=== PATIENT | female | born 1990 | race Caucasian/White ===

== ENCOUNTER 2023-11-14 08:56 | Outpatient (CLI) | payer OTHER, SELFPAY ==
[2023-11-15 04:38] LABS: Progesterone 13.6 ng/mL
== END 2023-11-14 08:57 | disposition home or self-care (01) ==
LOC: ANHLAB 08:58
PROVIDERS: Visit Provider Nurse Practitioner Family
DX: L50.9 Urticaria, unspecified (principal)
CPT/HCPCS: 36415; 84144; 86038; 86039

== ENCOUNTER 2024-04-16 08:03 | Outpatient (CLI) | payer OTHER, SELFPAY ==
--- NOTE | ~2024-04-16 | MM_ITS ---
EXAMINATION: MM screening graciela BI w nghia HISTORY: Screening mammogram, family history of breast cancer in her mother. TECHNIQUE: Craniocaudal and mediolateral oblique 3-D tomosynthesis images were obtained and synthetic 2-D images were generated. CAD analysis was submitted and interpreted. COMPARISON: No prior mammogram is available for comparison at this institution. BREAST PARENCHYMAL COMPOSITION:Dense: The breasts are extremely dense, which lowers the sensitivity o f mammography. FINDINGS: There is asymmetric density at the inner right breast, without clear-cut correlate on MLO v iew. No parenchymal abnormality left breast seen. IMPRESSION: Interval right breast asymmetry. Spot compression and true lateral views, and possibly ultrasound, a re recommended for further evaluation. BI-RADS Category 0: Incomplete: Needs additional imaging evaluation. Reviewed, dictated and finalized at [facility]. S ENGRAVER IMPRESSION: Interval right breast asymmetry. Spot compression and true lateral views, and possibly ultrasound, are recommended for further evaluation. BI-RADS Category 0: Incomplete: Needs additional imaging evaluation.
== END 2024-04-16 08:04 | disposition home or self-care (01) ==
LOC: ANHIMG 08:06
PROVIDERS: Visit Provider Obstetrics & Gynecology
DX: Z12.31 Encounter for screening mammogram for malignant neoplasm of breast (principal); R92.8 Other abnormal and inconclusive findings on diagnostic imaging of breast
CPT/HCPCS: 77063; 77067

== ENCOUNTER 2024-06-04 10:14 | Outpatient (CLI) | payer OTHER, SELFPAY | END 2024-06-04 10:15 | disposition home or self-care (01) | LOC: ANHIMG 10:16 | PROVIDERS: Visit Provider Obstetrics & Gynecology | DX: R92.8 Other abnormal and inconclusive findings on diagnostic imaging of breast (principal) | CPT/HCPCS: 77061; 77065; G0279 ==

== ENCOUNTER 2024-10-17 12:00 | Day surgery (SDC) | payer OTHER, SELFPAY ==
[2024-10-17] VITALS (8 sets, daily range): BP systolic 128–154; BP diastolic 72–95; PULSE 57–122; RESP 12–18; TEMP 36.3–37.4; O2SAT 100
--- NOTE | ~2024-10-17 | CT_ITS ---
CT of the Abdomen and Pelvis: Indication: Right lower quadrant pain Technique: 2.5 mm axial scans were obtained through the abdomen and pelvis following intravenous adm inistration of 100 cc of Omnipaque 350. Dose reduction technique was used on this scan by utilizing a utomated exposure control and iterative reconstruction technique. The dose-length product (DLP) was 4 04.23 mGy-cm. Findings: Scans through the lung bases are unremarkable. The liver, spleen, pancreas, gallbladder, adrenals and left kidney are within normal limits. There is a 5 mm stone in the proximal right ureter with mild right hydronephrosis. Additional 2 mm nonobstruc ting right renal stone present. No evidence of aortic aneurysm. No lymphadenopathy. No bowel obstruction or bowel wall thickening. There is no evidence to suggest acute appendicitis. Images through the pelvis were performed. Urinary bladder unremarkable. No pelvic mass seen. Ascites. Impression: 5 mm proximal right ureteral stone with mild right hydronephrosis. Additional 2 mm nonobstructing renal stone. Reviewed, dictated and finalized at [facility]. Impression: 5 mm proximal right ureteral stone with mild right hydronephrosis. Additional 2 mm nonobstructing renal stone.
--- NOTE | ~2024-10-17 | XR_ITS ---
XR retrograde pyelo w/stent RT Ordering provider: Trevin Torrez MD History: . RT SIDE STENT PLACEMENT . Comparison: None. FINDINGS/impression: Fluoroscopy time is 99.3 seconds. Cumulative dose is 18.71 mGy. Right retrograde pyelography with stent placement. Reviewed, dictated and finalized at location A.
--- OUTSIDE RECORDS SUMMARY | 2024-10-17 12:15 | XMS_ITS | Clinical Summary ---
Author Organization [facility] Address [address] [place] [id number] Care Team Providers Care Blacksmith Assistant Name Role Phone Unavailable Primary Care Provider Unavailabl e Allergies No known active allergies Medications fexofenadine (RENU) 180 MG tablet 1 Active Benzoyl Peroxide 5.2 % FoamIndications :Cystic acne Apply 1 Application topically nightly. 60 g 1 3 Active spironolactone (ALDACTONE) 100 MG tabletIndicatio ns:Cystic acne Take 1 tablet (100 mg total) by mouth daily. 90 tablet 1 3 Active Active Problems Problem Noted Date Diagnosed Date Closed fracture of calcaneus 03/02/2023 Histoplasmosis 03/24/2011 Mitral valve prolapse 04/24/2007 Migraine with aura 04/24/2004 Immunizations Immunization Administration Dates Next Due Flublok (Quadrivalent) 05/16/2019 Family History Medical History Relation Comments Breast Cancer Mother Relation Status Comments Mother Social History Tobacco Use Types Packs/Day Years Used Date Smoking Tobacco: Never Smokeless Tobacco: Never Tobacco Cessation:Counseling Given: Not Answered Alcohol Use Standard Drinks/Week Comments Yes 0 (1 standard drink = 0.6 oz pur e alcohol) very rare PHQ-2 Answer Date Recorded Patient Health Questionnaire-2 Score 0 06/02/2022 Comments Unknown Sex and Gender Information Value Date Recorded Sex Assigned at Not on file Legal Sex Female 11:34 AM CDT Gender Identity Not on file Sexual Orientation Not on file Last Filed Vital Signs Vital Sign Reading Time Taken Comments Blood Pressure 132/77 06/02/2022 2:07 PM CANDLE WICKER Pulse 67 06/02/2022 2:07 PM CANDLE WICKER Temperature 37.2 C (99 F) 06/02/2022 2:07 PM CANDLE WICKER Respiratory Rate 18 06/02/2022 2:07 PM CANDLE WICKER Oxygen Saturation 100% 06/02/2022 2:07 PM CANDLE WICKER Inhaled Oxygen Concentration - - Weight 75.3 kg (166 lb) 06/02/2022 2:07 PM CANDLE WICKER Height 180.3 cm (5' 11) 06/02/2022 2:07 PM CANDLE WICKER Body Mass Index 23.15 06/02/2022 2:07 PM CANDLE WICKER Plan of Treatment Health Maintenance Due Date Last Done Comments Cervical Cancer Screening Pa p Smear (Age 30 to 64) Every 3 Years 1988 Hepatitis C 01/07/2006 Hepatitis B Vaccines (1 of 3 - 19+ 3-dose series) 01/07/2007 Pneumococcal Vaccine: Pediatrics (0 to 5 Years) and At-Risk Patients (6 to 49 Years) (1 of 2 - PCV) 01/07/2007 Annual Physical 06/03/2023 06/02/2022 COVID-19 Vaccine (3 - 2023-2 5 season) 2023 05/23/2020, 04/25/2020 PHQ-2 (Physician [place]) 04/04/2024 Cervical Cancer Screening Pa p with HPV Testing (Age 30 to 64) Every 5 Years 11/28/2025 11/28/2020, 11/28/2020 Cervical Cancer Screening with HPV 11/28/2025 DTaP, Tdap and Td Vaccines ( 1 - Tdap) 04/06/2027 Postponed from 01/07 (Per Provider Recommendation) HPV Vaccines Aged Out No longer eligi ble based on patient's age to complete this topic Meningococcal B Vaccine Aged Out No l onger eligible based on patient's age to complete this topic Meningococcal Vaccine Aged Out No heaven catherine eligible based on patient's age to complete this topic RSV Immunizations Under 20 Months Aged Out No longer eligible b ased on patient's age to complete this topic Procedures Procedure Name Priority Date/Time Associated Diagnosis Comments OUTSIDE CYTOPATH CERV/VAG IN TERPRET (PAP) 11/28/2020 from Last 3 Months or Most Recently Relevant to Health Maintenance Results * PAP SMEAR WITH HPV (11/28/2020) 11/28/2020 [facility] Scanned SCANNING Final Resu lt from Last 3 Months or Most Recently Relevant to Health Maintenance Insurance [employer]MENTS OF GLADYS MICHAEL ORTIZ
--- OUTSIDE RECORDS SUMMARY | 2024-10-17 12:15 | XMS_ITS | Data Portability ---
Author Organization [place] [facility] Address [address] [place] [address] Care Team Providers Care Sourcing Intern Name Role Phone ALYSSA TUBBS Primary Care Provider [phone] BRYCE LOPEZ Rocket Engine Component Mechanic [phone] Assessment No assessment recorded. Plan of Treatment Reminders Order Date Submit Date Provider Last Modified By Organization Details Last Modified Time Details Appointments None recorded. Lab None recorded. Referral physical therapist referral 2022 023 [facility], [address] [place], [address], 10:09:52 Procedures None recorded. Surgeries None recorded. Imaging None recorded. Medication Orders None recorded. Patient TargetsNo targets recorded. Patient Instructions Encounter Date Encounter Id Patient Instructions Last Modified By Organization Details Last Modified Time 12/10/2022 [id number] I discussed with Zunilda that based on the subjective information she told me along with the findings of the physical exam, I believe that she has soft tissue injury to her ankle. Since this is the second time that she has injured this ankle I told her that it may take a while for it to heal. I told her that the treatment course for her is rest, ice, compression, and elevation. She can discontinue the use of the boot and be weightbearing as tolerated. I told her that if she is not getting any better after a couple weeks that I want her to call our office and we will discuss getting some further imaging by way of an MRI. I told her that she can take anti-inflammatory medicine for pain since she does not have any fractures in this ankle. I am going to give her a work note that states that she can use a knee scooter as well as ice and elevate her ankle while she is at work. I am going to follow-up with her on an as-needed basis. She was instructed to contact us with any questions or concerns. She voiced understanding and agreed with this plan of care. Patient was seen by Radha Crenshaw NP, and the diagnoses, problems and treatment plan for the patient has been reviewed and approved by me, Dr. Alexander Parkinson. [email or web address] Not available 12/10/2022 10:45:35 01/21/2023 [id number] I discussed with Zunilda that the x-rays today do not show the stress fracture or any healing signs of it. I would like her to continue wearing the boot for 2 more weeks. I want her to keep working on her range of motion exercises in her ankle. She asked about exercising and I told her I was fine with her doing some weightlifting as long as she had her boot on. I do not want her doing any type of lunges or anything where her ankle is mobile. I told her to hold off on any cardio until I see her back. I do want to follow-up with her in 2 weeks to check on her progress. I told her at that time if she feels like she needs some physical therapy to work on some strengthening exercises in this ankle that we would order it at that time. She was instructed to contact our office with any questions or concerns. She voiced understanding and agreed with this plan of care. Patient was seen by Radha Crenshaw NP, and the diagnoses, problems and treatment plan for the patient has been reviewed and approved by me, Dr. Alexander Parkinson. [email or web address] Not available 01/21/2023 20:53:37 02/04/2023 [id number] I discussed with Mimi that she seems to be doing well today following her ankle fracture. I am going to send her to physical therapy for a one-time visit to get a home exercise plan to work on range of motion and strengthening for her ankle. She can continue to ice, elevate, and take OTC pain medication as needed for any pain and swelling. I am going to follow-up with her on an as-needed basis. She was instructed to contact our office with any questions or concerns. She voiced understanding and agreed with this plan of care. Patient was seen by Radha Crenshaw NP, and the diagnoses, problems and treatment plan for the patient has been reviewed and approved by ut, Dr. Alexander Parkinson. [email or web address] Not available 02/04/2023 10:00:47 Reason for Referral Physical Therapist Referral for Closed fracture of calcaneus Referring Physician: Alexander Parkinson, Orthopedic Surgery, Encounter Date: 02/04/2023 Results Created Date Observation Date Name Description Value Unit Range Abnormal Flag Note LastModifiedBy Organization Detail LastModifiedTime 12/24/1912/10/2022 XR, ankle No observ ation record ed. [address] [address] [place], [address], 12/24/2022 12:37:24 01/08/20 23 01/06/2023 MRI, ankle , w/o contr ast No observ ation record ed. [place] [address] [facility] [address], [place], [address], 01/07/2023 14:13:34 01/22/20 23 01/21/2023 XR, ankle No observ ation record ed. [address] [address] [place], [address], 01/21/2023 10:46:23 Result Notes None recorded. Problems Name Problem SNOMED Code Status Onset Date Resolution Date Notes Provider Name and Address Organization Details Recorded Time Sprain of right ankle 25842657220603 105 Active 2022 RADHA CRENSHAW APRN [address], [place], [address], [place] [facility] 10:41:58 Pain of right ankle joint 77579580321161 106 Active 2022 RADHA CRENSHAW APRN [address], [place], [address], [place] [facility] 3 10:42:07 Closed fracture of calcaneus 56151246 Active 2022 RADHA CRENSHAW [place]N [address] [place], [address], [place] [facility] 3 20:49:09 Problem Notes None recorded. Medical Equipment None Reported. Allergies No known drug allergies Medications Name Sig Start Date Stop Date Status Note LastModified by Organization Details LastModified Time spironolactone 100 mg tablet active Not Available Not Availabl e Not Available fluoxetine 10 mg capsule TAKE ONE CAPSULE BY MOUTH DAILY active Not Available Not Available No t Available Vitals Date Recorded Body height Body mass index (BMI) Body weight Body temperature Heart rate Systolic And Diastolic Provider Name and Address Organization Details Last Updated DateTime 180.34 cm 22.6 kg/m2 11121.9 6 g 97.3 [degF] 90 /min 130/83 mm[Hg] Trista Bajwa [place] [facility] 10:06:56 Date Recorded Body height Body mass index (BMI) Body weight Heart rate Systolic And Diastolic Provider Name and Address Organization Details Last Updated DateTime 01/21/2023 180.34 cm 22.6 kg/m2 14809.96 g 72 /min 134/79 mm[Hg] Aurora Drummond [place] [facility] 01/21/2023 10:13:38 Date Recorded Body height Body mass index (BMI) Body weight Heart rate Systolic And Diastolic Provider Name and Address Organization Details Last Updated DateTime 02/04/2023 180.34 cm 22.6 kg/m2 08213.96 g 70 /min 122/81 mm[Hg] Aurora Drummond [place] [facility] 02/04/2023 09:46:38 Social History Question Answer Notes LastModified by Organizat ion Details LastModified Time Tobacco Smoking Status Never Smoker bernadette trujillo [place] [facility] 12/07/2022 15:23:59 Do You Have An Advance Directive? No [email or web address] Information not available 12/07/2022 Are You Blind Or Do You Have Difficulty Seeing? No [email or web address] Information not available 12/07/2022 Is Blood Transfusion Acceptable In An Emergency? Yes [email or web address] Information not available 12/07/2022 What Is Your Level Of Caffeine Consumption? Occasional [email or web address] Information not available 12/07/2022 In The 14 Days Before Symptom Onset, Have You Had Close Contact With A Laboratory-confir med COVID-19 While That Case Was Ill? No Information not available 12/07/2022 In The 14 Days Before Symptom Onset, Have You Had Close Contact With A Person Who Is Under Investigation For COVID-19 While That Person Was Ill? No [email or web address] Information not available 12/07/2022 Have You Been To An Area Known To Be High Risk For COVID-19? No [email or web address] Information not available 12/07/2022 Are You Deaf Or Do You Have Serious Difficulty Hearing? No [email or web address] Information not available 12/07/2022 What Type Of Diet Are You Following? REGULAR [email or web address] Information not available 12/07/2022 Have You Processed Blood Or Body Fluids From An Ebola Virus Disease Patient Without Appropriate PPE? No [email or web address] Information not available 12/07/2022 Do You Reside In Or Have You Traveled To An Area Where Ebola Virus Transmission Is Active? No [email or web address] Information not available 12/07/2022 What Is The Highest Grade Or Level Of School You Have Completed Or The Highest Degree You Have Received? [id number] [email or web address] Information not available 12/07/2022 Who Is Your Employer? [employer] [email or web address] Information not available 12/07/2022 How Many Days Of Moderate To Strenuous Exercise, Like A Brisk Walk, Did You Do In The Last 7 Days? 5 Information not available 12/07/2022 Are There Any Guns Present In Your Home? No [email or web address] Information not available 12/07/2022 Which Of Your Hands Is Dominant? Right Information not available 12/07/2022 What Is Your Relationship Status? [email or web address] Information not available 12/07/2022 Do You Use Your Seat Belt Or Car Seat Routinely? Yes Information not available 12/07/2022 Are You Sexually Active? No [email or web address] Information not available 12/07/2022 Do You Have Smoke And Carbon Monoxide Detectors In Your Home? Yes Information not available 12/07/2022 What Types Of Sporting Activities Do You Participate In? Weight Lifting Information not available 12/07/2022 Do You Use Sunscreen Routinely? Yes [email or web address] Information not available 12/07/2022 Do You Have Difficulty Walking Or Climbing Stairs? No [email or web address] Information not available 12/07/2022 Sex: Female Functional Status Question Answer Note LastModified by Organizat ion Details LastModified Time Do you use any illicit or recreational drugs? No Information not available 12/07/2022 Do you or have you ever used any other forms of tobacco or nicotine? No Information not available 12/07/2022 What is your level of alcohol consumption? None [email or web address] Information not available 12/07/2022 Are you currently employed? Yes Information not available 12/07/2022 Are you able to walk? YESWOREST [email or web address] Information not available 12/07/2022 Do you have difficulty doing errands alone? No Information not available 12/07/2022 Are you able to care for yourself? 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 No [email or web address] Information not available 12/07/2022 What is your exercise level? Moderate Information not available 12/07/2022 Mental Status Question Answer Note LastModified by Organizat ion Details LastModified Time Do you feel stressed (tense, restless, nervous, or anxious, or unable to sleep at night)? [id number] [email or web address] Information not available 12/07/2022 Do you have difficulty concentrating, remembering or making decisions? No [email or web address] Information no t available 12/07/2022 Family History Relationship Description Onset Age of this Age Resolved Age Notes LastModified by Organization Details LastModified Time Mother Malignant tumor of breast [email or web address] Not available 2022 15:28:47 Father Malignant tumor of testis [email or web address] Not available 2022 15:29:12 Father Disorder of cardiovascul ar system [email or web address] Not available 2022 15:29:59 Medical History Condition Response Heart Problems N Coronary Artery Disease N Gout N Anxiety/Depression N Blood Transfusion N Hernia N Migraines N Thyroid Problems N COPD N Pacemaker N Anemia N Ulcers N Heart Attack (MD) N Diabetes N Bleeding Disorder N Orthotics N Seizures/Epilepsy N Arthritis N Blood Clot N Tuberculosis N AIDS/HIV N Cancer N Stroke N Asthma N Peripheral Vascular Disease N High Cholesterol N Hepatitis N Liver Disease N Rheumatoid Arthritis N Pulmonary Embolism N Hypertension N Osteoporosis N Kidney Disease N Gynecological HistoryNo gynecological history recorded. Obstetrics History GPAL:G 0 P 0 0 0 0 Past Encounters Encounter ID Performer Location Encounter Start Date Encounter Closed Date Diagnosis/Indication Diagnosis SNOMED-CT Code Diagnosis ICD10 Code Diagnosis Note [id number] [address] 12/10/2022 09:48:08 12/10/2022 10:19:57 Sprain of right ankle 1588536615 1222846 S93.401A Pain of ri ght ankle joint 5920159637 8542835 M25.571 [id number] Parkinson [address] [address] 01/21/2023 10:02:02 01/21/2023 10:50:49 Closed fracture of calcaneus 60057453 S92.044A [id number] Parkinson [address] [address] 02/04/2023 09:40:55 02/04/2023 09:52:55 Closed fracture of calcaneus 92140810 S92.044D Health Concerns Section Related Observation LastModified by Organization Detai ls LastModified Time None Recorded Concern Status LastModified by Organization Details LastModified Time None Recorded Advance Directives Directive N: Payers Insurance Date Sequence Insurance Name Policy Number Policy Rosen Covered Member ID Rosen Member ID Guarantor Name 02/01/2023 1 [employer] - [employer]IVE 360 (EPO) Zunilda Ye [id number] Zunilda Ye 01/18/2023 MICHAEL ORTIZ [id number] [facility] Zunilda Ye Notes Date Note Type Note Provider Name and Address Organization Details Recorded Time 12/10/2022 text/html AnkleReported bypatient.Location: right; lateral Quality:aching Severity:moderate Timing:date of onset: (12/07/2022) Aggravating Factors:walking; weightbearing Alleviating Factors:rest; limited weight bearing; crutches Associated Symptoms:no numbness; no tingling;swelling;e cchymosis Prior Imaging:x ray Mimi is seen in clinic today with complaints of right ankle pain following a visit to the [facility] on 12/07/2022 after she rolled her ankle. She presents today in a walking boot and using crutches and states she was told that she could possibly have a fracture but they were not sure. She has not been weightbearing. She said she was doing okay until yesterday when her ankle started hurting and she has been taking Tylenol as needed. She says that she rolled this ankle about 20 years ago and sprained it pretty bad and it was sore for several months. The ROS is reviewed with the patient and a copy is located in the chart. RADHA CRENSHAW APRN [address] [place], [address], [place] [facility] 12/10/2022 10:46:26 01/21/2023 text/html AnkleReported bypatient.Location: right; lateral Severity:no pain Timing:date of onset: (12/07/2022) Aggravating Factors:walking; weightbearing Alleviating Factors:rest; limited weight bearing; orthotics Associated Symptoms:no numbness; no tingling Prior Imaging:x ray; MRI Zunilda is seen in clinic today for follow up of her right ankle injury. She presents wearing her short leg boot that she was told to return to after her MRI did show a small stress fracture that did not show up on her original radiographs. She states her biggest complaint today is a lack of ROM and not pain. She feels like there is a cluster of tissue on the lateral side of the ankle and this seems to bother her more than actual pain. If it does swell she will ice and elevate. RADHA CRENSHAW APRN [address], [place], [address], [place] [facility] 01/21/2023 20:55:27 02/04/2023 text/html AnkleReported bypatient.Location: right; lateral Severity:no pain Timing:date of onset: (12/07/2022) Aggravating Factors:walking; weightbearing Alleviating Factors:rest; limited weight bearing; orthotics Associated Symptoms:no numbness; no tingling Prior Imaging:x ray; MRI Previous PT:none Zunilda is here for follow up for her ankle fracture that was discovered on MRI. She had been wearing her walking boot up until a week ago. She states the ankle was starting to feel stiff so while at home during the week she ambulated without the boot, and that made her ankle feel better. Today she states she is not having pain, just stiffness. She has no other complaints today. RADHA CRENSHAW, PARTS DELIVERY DRIVER [address] [place], [address], [place] [facility] 02/04/2023 10:04:12 OBGyn Episode No OBEpisode recorded.
[2024-10-17 12:21] LABS: BEDSIDEPREGUCG Negative (Negative)
[2024-10-17 12:25] LABS: Hematocrit 40.4 % (37.0-47.0); Hemoglobin 13.4 g/dL (12.0-15.0); Immature Granulocyte Percent A 0.2 % (0-0.5); Lymphocytes Absolute Auto 1.75 K/mm3 (0.9-3.2); Mean Corpuscular HGB Conc 33.2 g/dl (32-36); Mean Corpuscular Hemoglobin 29.8 pg (26-34); Mean Corpuscular Volume 90.0 fl (80-100); Nucleated Red Blood Cells Absolute Auto 0.000 K/mm3 (0.0-0.012); Nucleated Red Blood Cells Perc 0.0 % (0.0-0.2); Platelet Count Result 265 k/mm3 (150-375); Red Blood Count 4.49 M/mm3 (4.2-5.4); White Blood Count 6.5 K/mm3 (4.5-10.0)
[2024-10-17 12:36] LABS: Add Urine Microscopic? YES; Appearance Urine Cloudy (Clear); Glucose Urine UA Negative (Negative); Leukocyte Esterase Ur 1+ LEU/UL (Negative); Nitrate Urine Negative (Negative); Non Pathogenic Casts 0-2; Specific Grav Ur 1.033 (1.001-1.035)
--- OUTSIDE RECORDS SUMMARY | 2024-10-17 12:40 | XMS_ITS | Clinical Summary ---
Author Organization [facility] Address [address] [place] [address] Care Team Providers Care Roller Stitcher Name Role Phone Unavailable Primary Care Provider [...] Comments Blood Pressure 132/77 06/02/2022 2:07 PM DOCUMENTATION SPEC Pulse 67 06/02/2022 2:07 PM DOCUMENTATION SPEC Temperature 37.2 C (99 F) 06/02/2022 2:07 PM DOCUMENTATION SPEC Respiratory Rate 18 06/02/2022 2:07 PM DOCUMENTATION SPEC Oxygen Saturation 100% 06/02/2022 2:07 PM DOCUMENTATION SPEC Inhaled Oxygen Concentration - - Weight 75.3 kg (166 lb) 06/02/2022 2:07 PM DOCUMENTATION SPEC Height 180.3 cm (5' 11) 06/02/2022 2:07 PM DOCUMENTATION SPEC Body Mass Index 23.15 06/02/2022 2:07 PM DOCUMENTATION SPEC Plan of Treatment Health Maintenance Due Date [...] 5 season) 2023 05/23/2020, 04/25/2020 PHQ-2 (Physician [place]) 04/04/2024 Cervical Cancer Screening Pa p with [...] Most Recently Relevant to Health Maintenance Insurance [employer]SEMENTS OF GLADYS MICHAEL ORTIZ
[2024-10-17 12:43] LABS: Alanine Aminotransferase 19 U/L (6-35); Albumin Level 4.5 g/dL (3.5-5.1); Alkaline Phosphatase 57 U/L (38-126); Anion Gap 10 mmol/L (4-12); Aspartate Amino Transferase 29 U/L (14-36); Bilirubin,Total 0.8 mg/dL (0.2-1.3); Blood Urea Nitrogen 19 mg/dL (7-17); Calcium 9.2 mg/dL (8.4-10.2); Carbon Dioxide 21 mmol/L (22-30); Chloride 105 mmol/L (98-107); Estimated CRCL calculation 66 ml/min; Estimated Glomerular Filt Rate 54; Glucose 100 mg/dL (65-110); Lipase 87 U/L (23-300); Potassium 4.1 mmol/L (3.4-5.0); Sodium 136 mmol/L (137-145); Total Protein 7.6 g/dL (6.3-8.2)
--- NOTE | 2024-10-17 12:43 | ED_ITS ---
HPI - Abdominal Pain General Chief Complaint: Abdominal Pain Stated Complaint: ABD PAIN Time Seen by Provider: 10/17/24 12:33 Source: patient Mode of arrival: ambulatory Limitations: no limitations History of Present Illness HPI narrative: 34 years old white female came to the ED with sudden onset of right lower quadrant pain for associated with nausea and frequent vomiting. Sharp, nothing make it better, nothing make it worse. Patient denies fever or chills Related Data Home Medications ?Medication ?Instructions ?Recorded ?Confirmed ?Last Taken ?Type drospirenone (contraceptive) 4 mg 4 mg PO DAILY 10/17/24 10/17/24 10/16/24 History (28) tablet (Slynd) Allergies Allergy/AdvReac Type Severity Reaction Status Date / Time No Known Allergies Allergy Verified 10/17/24 12:10 Review of Systems 2 Review of Systems: All systems reviewed & are unremarkable except as noted in HPI and below PMFSH Family History Family History Mother Family history of malignant neoplasm of breast in first degree relative Father Family history of malignant neoplasm of testis Sibling Family history of malignant neoplasm of testis Social History Social History Smoking status: Never smoker Alcohol intake: never Exam 2 Narrative: General appearance: Well-developed, well-nourished, in pain, restless Skin: Normal color Head: Normocephalic, nontraumatic Eyes: Clear conjunctiva ENT: Oropharynx normal, ears normal, nose normal Neck: Supple, nontender Chest and respiratory: Airway patent, no respiratory distress, no accessory muscle use Heart: Regular rate/rhythm Abdomen: Soft, severe tenderness right lower quadrant, no organomegaly, quiet bowel sounds Vascular: Normal peripheral pulses, normal capillary refill. Musculoskeletal: Normal range of motion, nontender back Neurologic: Alert and oriented ?3, [employer] is normal as tested, no gross motor deficit Course Consultations Consultation #1: Dr. Laguna Admit to hospitalist Date: 10/17/24 Vital Signs Vital signs: Vital Signs Temperature 36.3 C L 10/17/24 12:07 Pulse Rate 74 10/17/24 12:07 Respiratory Rate 18 10/17/24 12:07 Blood Pressure 140/91 H 10/17/24 12:07 Pulse Oximetry 100 10/17/24 12:07 Oxygen Delivery Room Air 10/17/24 12:07 Temperature 36.3 C L 10/17/24 15:32 Pulse Rate 77 10/17/24 16:40 Respiratory Rate 14 10/17/24 16:40 Blood Pressure 128/72 10/17/24 16:40 Pulse Oximetry 100 10/17/24 16:00 Oxygen Delivery Room Air 10/17/24 16:00 Oxygen Flow Rate 10 10/17/24 15:32 MDM - Abdominal Pain MDM Narrative Medical decision making narrative: Sudden onset of right lower quadrant pain associated with nausea and vomiting Vital signs are stable Differential diagnosis include ruptured ovarian cyst, kidney stone, appendicitis, intussusception, colitis, diverticulitis, urinary tract infection Blood workup today includes CBC, CMP, lipase showed creatinine of 1.1 otherwise within normal limit Urinalysis showed 3+ blood, 1+ leukocyte Estrace, 11-[address] abdomen and pelvis with IV contrast showed 5 mm proximal right ureteral stone with mild hydronephrosis Diagnosis kidney stone Rocephin 1 g IV given, Urology consult, admit to hospitalist. Differential Diagnosis Differential diagnosis: Likely other (As above) Medical Records Attestation: I reviewed the patient's medical records. Lab Data Attestation: I reviewed the patient's lab results. 10/17/24 12:12 10/17/24 12:12 Labs: Lab Results 10/17/24 10/17/24 10/17/24 Range/Units 12:12 12:19 12:20 WBC 6.5 (4.5-10.0) K/mm3 RBC 4.49 (4.2-5.4) M/mm3 Hgb 13.4 (12.0-15.0) g/dL Hct 40.4 (37.0-47.0) % MCV 90.0 (80-100) fl MCH 29.8 (26-34) pg MCHC 33.2 (32-36) g/dl RDW 12.5 (11.5-14.5) % Plt Count 265 (150-375) k/mm3 MPV 10.5 H (7.4-10.4) fl Immature Gran % (Auto) 0.2 (0-0.5) % Neut % (Auto) 63.0 (45.5-73.1) % Lymph % (Auto) 26.8 (18.3-44.2) % [place] % (Auto) 7.4 (2.6-8.5) % Eos % (Auto) 1.8 (0-4.4) % Baso % (Auto) 0.8 (0.2-1.2) % Lymph # (Auto) 1.75 (0.9-3.2) K/mm3 [place] # (Auto) 0.5 (0.1-0.6) K/mm3 Eos # (Auto) 0.1 (0-0.3) K/mm3 Baso # (Auto) 0.1 (0.0-0.1) K/mm3 Abs Immat Gran (auto) 0.01 (0.00-0.031) K/mm3 Absolute Neuts (auto) 4.1 (1.3-6.7) K/mm3 Absolute Nucleated RBC 0.000 (0.0-0.012) K/mm3 Nucleated RBC % 0.0 (0.0-0.2) % Sodium 136 L (137-145) mmol/L Potassium 4.1 (3.4-5.0) mmol/L Chloride 105 (98-107) mmol/L Carbon Dioxide 21 L (22-30) mmol/L Anion Gap 10 (4-12) mmol/L BUN 19 H (7-17) mg/dL Creatinine 1.13 H (0.7-1.0) mg/dL Estim Creat Clear Calc 66 ml/min Estimated GFR 54 L (59 - ) Glucose 100 (65-110) mg/dL Calcium 9.2 (8.4-10.2) mg/dL Total Bilirubin 0.8 (0.2-1.3) mg/dL AST 29 (14-36) U/L ALT 19 (6-35) U/L Alkaline Phosphatase 57 (38-126) U/L Total Protein 7.6 (6.3-8.2) g/dL Albumin 4.5 (3.5-5.1) g/dL Lipase 87 (23-300) U/L Urine Color Yellow (Yellow) Urine Appearance Cloudy H (Clear) Urine pH 5.5 (5.0-9.0) Ur Specific [place] 1.033 (1.001-1.035) Urine Protein 1+ H (Negative) mg/dL Urine Glucose (UA) Negative (Negative) mg/dL Urine Ketones 1+ H (Negative) mg/dL Ur Blood (Man) 3+ H (Negative) Urine Nitrate Negative (Negative) Urine Bilirubin Negative (Negative) Urine Urobilinogen 1.0 (<2.0) mg/dL Leukocyte Esterase Rfl 1+ H (Negative) TAYLER/UL Urine RBC 21-50 H (0-2) /hpf Urine WBC 11-20 H (0-3) /hpf Ur Squamous Epith Cells Few (Few) /hpf Urine Bacteria 1+ H /hpf Urine Casts 0-2 POC Urine HCG, Qual Negative (Negative) Imaging Data Radiologist's impression: ITS Impressions Abdomen/Pelvis CT 10/17/24 13:08 Impression: 5 mm proximal right ureteral stone with mild right hydronephrosis. Additional 2 mm nonobstructing renal stone. Critical Care Time Critical Care Time Critical Care Time: No Discharge Plan Discharge Clinical Impression: Renal stone Patient Disposition: Still a Patient Condition: Stable
[2024-10-17] MEDS: ONDANSETRON INJ 4 MG/2 ML VIAL IV PUSH (13:12)
[2024-10-17] MEDS: HYDROmorphone HCL INJ (*CRX) 2 MG/ML VIAL 0.5 MG IV PUSH ×2 (13:13→14:12)
[2024-10-17] MEDS: cefTRIAXone 1 GM in SODIUM CHLORIDE 0.9% IV 50 ML 100 ML IVPB (13:52)
[2024-10-17] MEDS: TAMSULOSIN HCL 0.4 MG CAPSULE PO (13:52)
--- NOTE | 2024-10-17 13:57 | WPDURCON ---
Assessment and Plan Assessment and plan (1) Ureteral calculus: Code(s): N20.1 - Calculus of ureter Status: Acute (2) Renal stone: Code(s): N20.0 - Calculus of kidney Status: Acute (3) Hydronephrosis: Code(s): N13.30 - Unspecified hydronephrosis Status: Acute Plan -CT AP reveals 5 mm proximal right ureteral stone with mild right hydronephrosis. Additional 2 mm nonobstructing renal stone. -wbc wnl -cr 1.13 -ua suspicious for infection. Rocephin given in ER. culture pending. culture driven antibiotic therapy per primary service. -Discussed cystoscopy with right ureteral stent placement including risks and plan for outpatient definitive stone management after resolution of infection. Patient agreeable to urologic surgical intervention today. -Keep NPO -add on for cystoscopy with right ureteral stent placement with Dr. Torrez today. Urology Consult Note HPI Date Seen: 10/17/24 Primary Care Provider: RECONCILIATION COORDINATOR PHYSICIAN Consult Narrative Narrative: Zunilda Ye is a 34 year old female came to the ED with sudden onset of right lower quadrant pain for associated with nausea and frequent vomiting. Sharp, nothing make it better, nothing make it worse. Patient denies fever or chills Review of Systems Review of Systems: All systems reviewed & are unremarkable except as noted in HPI and below PMFSH Family History Family History Mother Family history of malignant neoplasm of breast in first degree relative Father Family history of malignant neoplasm of testis Sibling Family history of malignant neoplasm of testis Social History Social History Smoking status: Never smoker Alcohol intake: never Meds Home Medications and Allergies Home Medications ?Medication ?Instructions ?Recorded ?Confirmed ?Type fluconazole 150 mg tablet 150 mg PO ONCE #2 tabs 09/27/24 Rx Allergies Allergy/AdvReac Type Severity Reaction Status Date / Time No Known Allergies Allergy Verified 10/17/24 12:10 Vital Signs Vital Signs - 24 hr 10/17/24 12:07 Temperature 97.3 F L Pulse Rate 74 Respiratory Rate 18 Blood Pressure 140/91 H Pulse Oximetry 100 Oxygen Delivery Room Air Exam Const: General: uncomfortable Eyes: General: appearance normal, both eyes and all related structures Neck: Neck: supple Resp: Effort & Inspection: normal respiratory effort Skin: General skin exam: normal color Neuro: Speech: normal speech Psych: Speech and movement: Normal speech and movement present Results Labs 10/17/24 12:12 10/17/24 12:12 Labs: Short CBC 10/17/24 Range/Units 12:12 WBC 6.5 (4.5-10.0) K/mm3 Hgb 13.4 (12.0-15.0) g/dL Hct 40.4 (37.0-47.0) % Plt Count 265 (150-375) k/mm3 BMP 10/17/24 12:12 Sodium 136 L Potassium 4.1 Chloride 105 Carbon Dioxide 21 L BUN 19 H Creatinine 1.13 H Glucose 100 Calcium 9.2 Liver Function 10/17/24 Range/Units 12:12 Total Bilirubin 0.8 (0.2-1.3) mg/dL AST 29 (14-36) U/L ALT 19 (6-35) U/L Alkaline Phosphatase 57 (38-126) U/L Albumin 4.5 (3.5-5.1) g/dL Urine 10/17/24 Range/Units 12:20 Urine Color Yellow (Yellow) Urine Appearance Cloudy H (Clear) Urine pH 5.5 (5.0-9.0) Ur Specific [place] 1.033 (1.001-1.035) Urine Protein 1+ H (Negative) mg/dL Urine Glucose (UA) Negative (Negative) mg/dL
[2024-10-17] MEDS: SODIUM CHLORIDE 0.9% IV 1,000 ML 125 ML IV CONT (14:12)
[2024-10-17] MEDS: METOCLOPRAMIDE HCL INJ 10 MG/2 ML VIAL IV PUSH (14:12)
--- NOTE | 2024-10-17 14:27 | WPDHPUPDATE1 ---
History and Physical Update Update Date/Time: 10/17/24 14:27 History and Physical has been reviewed, including an updated exam of the patient. There are NO changes in the patient's condition. Risks, benefits, and alternatives have been discussed and questions answered. Patient agrees to proceed with procedure.
--- NOTE | 2024-10-17 14:48 | WPDANESEPPF ---
Anes - Initial Pre Proc Eval Procedure: Operation Date: 10/17/24 14:30 Proposed Procedures p Cystoscopy, Right Stent Placement - Trevin Torrez MD Date/Time: 10/17/24 14:48 Surgeon: Marshall Ramirez MD Pre Op Diagnosis: right proximal kidney stone Patient Data Age: 34 Gender: F Height: 1.8 m Weight: 68.1 kg Last Vital Signs Temp 98.0 F 10/17/24 14:03 Pulse 57 L 10/17/24 14:03 Resp 18 10/17/24 14:03 BP 135/81 10/17/24 14:03 Pulse Ox 100 10/17/24 14:03 O2 Del Method Room Air 10/17/24 12:07 Allergies Allergy/AdvReac Type Severity Reaction Status Date / Time No Known Allergies Allergy Verified 10/17/24 12:10 Home Medications ?Medication ?Instructions ?Recorded ?Confirmed ?Type drospirenone (contraceptive) 4 mg 4 mg PO DAILY 10/17/24 10/17/24 History (28) tablet (Slynd) Laboratory Tests 10/17/24 10/17/24 10/17/24 12:12 12:19 12:20 WBC 6.5 K/mm3 (4.5-10.0) RBC 4.49 M/mm3 (4.2-5.4) Hgb 13.4 g/dL (12.0-15.0) Hct 40.4 % (37.0-47.0) MCV 90.0 fl (80-100) MCH 29.8 pg (26-34) MCHC 33.2 g/dl (32-36) RDW 12.5 % (11.5-14.5) Plt Count 265 k/mm3 (150-375) MPV 10.5 H fl (7.4-10.4) Immature Gran % (Auto) 0.2 % (0-0.5) Neut % (Auto) 63.0 % (45.5-73.1) Lymph % (Auto) 26.8 % (18.3-44.2) [place] % (Auto) 7.4 % (2.6-8.5) Eos % (Auto) 1.8 % (0-4.4) Baso % (Auto) 0.8 % (0.2-1.2) Lymph # (Auto) 1.75 K/mm3 (0.9-3.2) [place] # (Auto) 0.5 K/mm3 (0.1-0.6) Eos # (Auto) 0.1 K/mm3 (0-0.3) Baso # (Auto) 0.1 K/mm3 (0.0-0.1) Abs Immat Gran (auto) 0.01 K/mm3 (0.00-0.031) Absolute Neuts (auto) 4.1 K/mm3 (1.3-6.7) Absolute Nucleated RBC 0.000 K/mm3 (0.0-0.012) Nucleated RBC % 0.0 % (0.0-0.2) Sodium 136 L mmol/L (137-145) Potassium 4.1 mmol/L (3.4-5.0) Chloride 105 mmol/L (98-107) Carbon Dioxide 21 L mmol/L (22-30) Anion Gap 10 mmol/L (4-12) BUN 19 H mg/dL (7-17) Creatinine 1.13 H mg/dL (0.7-1.0) Estim Creat Clear Calc 66 ml/min Estimated GFR 54 L (59 - ) Glucose 100 mg/dL (65-110) Calcium 9.2 mg/dL (8.4-10.2) Total Bilirubin 0.8 mg/dL (0.2-1.3) AST 29 U/L (14-36) ALT 19 U/L (6-35) Alkaline Phosphatase 57 U/L (38-126) Total Protein 7.6 g/dL (6.3-8.2) Albumin 4.5 g/dL (3.5-5.1) Lipase 87 U/L (23-300) Urine Color Yellow (Yellow) Urine Appearance Cloudy H (Clear) Urine pH 5.5 (5.0-9.0) Ur Specific [place] 1.033 (1.001-1.035) Urine Protein 1+ H mg/dL (Negative) Urine Glucose (UA) Negative mg/dL (Negative) Urine Ketones 1+ H mg/dL (Negative) Ur Blood (Man) 3+ H (Negative) Urine Nitrate Negative (Negative) Urine Bilirubin Negative (Negative) Urine Urobilinogen 1.0 mg/dL (<2.0) Leukocyte Esterase Rfl 1+ H TAYLER/UL (Negative) Urine RBC 21-50 H /hpf (0-2) Urine WBC 11-20 H /hpf (0-3) Ur Squamous Epith Cells Few /hpf (Few) Urine Bacteria 1+ H /hpf Urine Casts 0-2 POC Urine HCG, Qual Negative (Negative) Patient hx anesthesia problems: none Family hx anesthesia problems: none Results Review: All pre-operative results and documents have been reviewed as part of the pre-operative evaluation. [facility] Family History Family History Mother Family history of malignant neoplasm of breast in first degree relative Father Family history of malignant neoplasm of testis Sibling Family history of malignant neoplasm of testis Social History Social History Smoking status: Never smoker Alcohol intake: never Anes - Eval Final PreProcedure Day of Procedure 10/17/24 14:48 Patient weight: normal and thin Lungs: normal air movement Airway: Mallampati scale class II Neurological: alert and oriented Last oral intake: 6 hours (Pt had a doughnut at 8am. ) ASA classification: I Emergent: yes Anesthetic plan: proceed Anesthesia type and monitoring: general ETT and standard monitoring Results Review: All pre-operative results and documents have been reviewed as part of the pre-operative evaluation. Overall good health, now for emergent cysto/stent due to hydronephrosis. Informed Consent: The patient's anesthetic plan and its attendant risks and benefits were discussed with the patient/family/POA. Questions were solicited and answers provided to the satisfaction of the patient/family/POA.
[2024-10-17] MEDS: LIDOCAINE 2% GEL UROJET 10 ML PKG MUCOUS MEM (15:06)
--- NOTE | 2024-10-17 15:18 | P.HP_ITS ---
H&P: HPI History of Present Illness Date/Time: 10/17/24 15:18 Chief Complaint: Acute right lower quadrant pain Narrative: 34-year-old female presents the hospital with acute right lower quadrant pain nausea vomiting. Patient was at work when she experienced excruciating pain so she went to the emergency room to be evaluated. In the ED her lab work shows sodium of 136, carbon dioxide 21, BUN of 19, creatinine of 1.13, estimated GFR of 54, UA is cloudy with 1+ leukocyte esterase 1+ bacteria, 11-20 rbc's and few squamous. Him CT of abdomen pelvis show 5 mm proximal right ureteral stone with mild right hydronephrosis and 2 mm nonobstructing renal stone. Patient will be admitted for pain management and to see Urology for possible stent placement. Review of Systems Review of Systems: 12 systems were reviewed and are negativ e except for as per HPI. [facility], [facility] Family History Family History Mother Family history of malignant neoplasm of breast in first degree relative Father Family history of malignant neoplasm of testis Sibling Family history of malignant neoplasm of testis Social History Social History Smoking status: Never smoker Alcohol intake: never Meds Home Medications and Allergies Home Medications ?Medication ?Instructions ?Recorded ?Confirmed ?Type drospirenone (contraceptive) 4 mg 4 mg PO DAILY 10/17/24 10/17/24 History (28) tablet (Slynd) Allergies Allergy/AdvReac Type Severity Reaction Status Date / Time No Known Allergies Allergy Verified 10/17/24 12:10 Vital Signs Vital Signs - 24 hr 10/17/24 12:07 10/17/24 14:03 10/17/24 14:35 Temperature 97.3 F L 98.0 F 99.4 F Pulse Rate 74 57 L 67 Respiratory Rate 18 18 16 Blood Pressure 140/91 H 135/81 154/95 H Pulse Oximetry 100 100 100 Oxygen Delivery Room Air Room Air Exam Narrative: General: well appearing, appears stated age. HEENT: normocephalic, atraumatic. Mucous membranes moist. EOMI, PERRLA, bilateral sclera anicteric, no conjunctival injection. Neck supple without JVD, lymphadenopathy, or bruit. Respiratory: clear to ascultation bilaterally. No rales/rhonic/wheezes. Cardiovascular: Regular rate and rhythm, normal S1-S2 upon ascultation. No murmurs, rubs, or clicks. PMI is nondisplaced, capillary refill less than 3 second. Abdomen: Soft, round, no pulsatile masses, nondistended and nontender. No rebound, no guarding. No CVA tenderness, no hepatosplenomegaly. Bowel sounds present to all four quadrants. No high pitch or tinkling sounds, resonant to percussion. Extremities: No cyanosis, clubbing, or edema present. Pulses are palpable 2/2. Active ROM to all four extremities. Neuro: Alert and orientated x 4. PERRLA. Cranial nerves 2-12 intact without focal deficit. Skin: Warm, dry, and intact, without rash, erythema, or lesion. Psych: pleasant, cooperative, normal speech, normal affect, no hallucinations, no dysarthia H&P: Results Labs Labs: Short CBC 10/17/24 Range/Units 12:12 WBC 6.5 (4.5-10.0) K/mm3 Hgb 13.4 (12.0-15.0) g/dL Hct 40.4 (37.0-47.0) % Plt Count 265 (150-375) k/mm3 BMP 10/17/24 12:12 Sodium 136 L Potassium 4.1 Chloride 105 Carbon Dioxide 21 L BUN 19 H Creatinine 1.13 H Glucose 100 Calcium 9.2 Liver Function 10/17/24 Range/Units 12:12 Total Bilirubin 0.8 (0.2-1.3) mg/dL AST 29 (14-36) U/L ALT 19 (6-35) U/L Alkaline Phosphatase 57 (38-126) U/L Albumin 4.5 (3.5-5.1) g/dL Urine 10/17/24 Range/Units 12:20 Urine Color Yellow (Yellow) Urine Appearance Cloudy H (Clear) Urine pH 5.5 (5.0-9.0) Ur Specific [place] 1.033 (1.001-1.035) Urine Protein 1+ H (Negative) mg/dL Urine Glucose (UA) Negative (Negative) mg/dL Assessment and Plan Assessment and plan (1) Ureteral calculus: Code(s): N20.1 - Calculus of ureter Status: Acute Assessment and Plan: 5 mm Urology consulted Possible stent placement Pain management and IVF (2) Hydronephrosis: Code(s): N13.30 - Unspecified hydronephrosis Status: Acute Assessment and Plan: Secondary to above (3) Renal stone: Code(s): N20.0 - Calculus of kidney Status: Acute Assessment and Plan: 2 mm should be able pass on its own (4) UTI (urinary tract infection): Code(s): N39.0 - Urinary tract infection, site not specified Status: Acute Assessment and Plan: IV Rocephin Culture and sensitivity pending
[2024-10-17] MEDS: LACTATED RINGERS 1,000 ML 30 ML IV CONT (15:32)
--- NOTE | 2024-10-17 15:32 | W.PM.PROC2 ---
Procedure Note - Detailed Date of Procedure 10/17/24 Pre-op Diagnosis right proximal kidney stone Post-op Diagnosis Same Procedure Performed Cystoscopy, right retrograde pyelogram, right ureteral stent insertion Surgeon Trevin Torrez MD Anesthesia General Findings Right hydronephrosis and proximal ureteral stone Description of Procedure Informed consent was obtained. Patient taken aspirin. She is given preoperative IV antibiotics. She was induced anesthesia. She was prepped draped normal sterile fashion. A 20 F cystoscope was inserted through the urethra into bladder. Cystoscopy revealed no mucosal abnormalities and bilateral orthotopic ureteral orifices. There was retained contrast in the right kidney with moderate hydronephrosis. We then cannulated the right orifice and retrograde pyelogram showed a delicate ureter up to the filling defect in the proximal ureter and then moderate right hydronephrosis. Over wire we placed a 4.8 F variable length stent with a curl in the upper pole across the bladder. Bladder was emptied lidocaine instilled. Patient taken to recovery in stable condition Patient to be discharged home. Plan follow-up in 1 to 2 weeks for definitive stone management, likely with ureteroscopy/laser lithotripsy Complications No immediate complications Condition Stable Disposition PACU
--- OUTSIDE RECORDS SUMMARY | 2024-10-18 11:25 | XMS_ITS | Clinical Summary ---
Author Organization [facility] Address [address] [place] [id number] Care Team Providers Care Last Puller Name Role Phone Unavailable Primary Care Provider [...] Comments Blood Pressure 132/77 06/02/2022 2:07 PM PIPE JOINTS SUPERVISOR Pulse 67 06/02/2022 2:07 PM PIPE JOINTS SUPERVISOR Temperature 37.2 C (99 F) 06/02/2022 2:07 PM PIPE JOINTS SUPERVISOR Respiratory Rate 18 06/02/2022 2:07 PM PIPE JOINTS SUPERVISOR Oxygen Saturation 100% 06/02/2022 2:07 PM PIPE JOINTS SUPERVISOR Inhaled Oxygen Concentration - - Weight 75.3 kg (166 lb) 06/02/2022 2:07 PM PIPE JOINTS SUPERVISOR Height 180.3 cm (5' 11) 06/02/2022 2:07 PM PIPE JOINTS SUPERVISOR Body Mass Index 23.15 06/02/2022 2:07 PM PIPE JOINTS SUPERVISOR Plan of Treatment Health Maintenance Due Date [...] 5 season) 2023 05/23/2020, 04/25/2020 PHQ-2 (Physician [place]) 04/04/2024 Cervical Cancer Screening Pa p with [...] Most Recently Relevant to Health Maintenance Insurance [employer] MICHAEL ORTIZ
== END 2024-10-17 17:12 | disposition home or self-care (01) ==
LOC: ANHED 13:40 → ANH3MEDSUR 14:32 → ANHSURGERY 10-18 11:08
PROVIDERS: Emergency Provider Emergency Medicine; Visit Provider Urology
PROC: (CPT 52352; principal; 2024-10-17 14:30)
DX: N13.2 Hydronephrosis with renal and ureteral calculous obstruction (principal); R11.2 Nausea with vomiting, unspecified
CPT/HCPCS: 52332; 36415; 74177; 74420; 80053; 81001; 81025; 83690; 85025; 87086; 96365; 96375; 96376; 99285; A9270; C1769; C2617; J0330; J0696; J1100; J1171; J1200; J2003; J2250; J2405; J2704; J2765; J3010; J7030; J7120; Q9967

== ENCOUNTER 2024-10-26 00:15 | Day surgery (SDC) | payer OTHER, SELFPAY ==
[2024-10-24 08:12] VITALS: BMI 23.1
--- NOTE | 2024-10-24 08:19 | PC.NURSE ---
Report to the Outpatient Waiting Room, entrance under the green pavilion located off [facility], at time _0900_ on date 10/26/24_. Planned Procedure Time: _1100_.? Time changes happen often and if your time is changed the preop area will call you the afternoon before. - You and your visitor will be asked to self-screen and do not enter if you have any COVID symptoms. Please call surgeon if you need to reschedule. - A mask is optional within the hospital at this time. Patients may have clear liquids (water, carbonated beverages, clear teas, apple juice) until 3 hours prior to surgery with a maximum of 20 ounces. - No food from midnight until time of surgery and no smoking, or chewing tobacco (or any form of nicotine). No chewing gum, candy or mints. - Infants may have breast milk until 4 hours before surgery, infant formula 6 hours prior to surgery. - Children will be allowed to drink immediately following surgery.? If applicable, please bring a bottle or sippy cup to assist with drinking. Juice, water, soda, and popsicles are readily available.? For infants on formula, please bring formula the day of surgery.? Pacifiers are allowed. Take only the following medications with a SIP of water on the morning of surgery: ___NONE DO NOT STOP ANY OF YOUR OTHER PRESCRIPTION MEDICATIONS PRIOR TO SURGERY EXCEPT THE FOLLOWING Hold all vitamins and supplements for 3 days per anesthesiologist. Medications to discontinue per physician Date to take last dose Please no make-up, nail nepali, hairspray, perfume, deodorant, or body powder the day of surgery.? No jewelry (including any body piercings) or valuables the day of surgery, leave them at home.? Please take a shower or bath the night before, or the morning of, surgery with an antibacterial soap.? Wear comfortable, loose fitting clothing.? Children are encouraged to wear pajamas. - Jewelry must be removed prior to entering the operating room.? Rings and piercings that are not removed may be cut off. - The hospital will not accept responsibility for valuables.? - Please leave all valuables, including medications, at home the day of surgery. If you are going home after surgery, a licensed truck driver instructor must drive you home.? - NO public transportation without another adult if you receive anesthesia. - We recommend that an adult stay with you for 24 hours following discharge. - We also recommend that you do not drive, make important decision, drink alcoholic beverages, or take any drugs that were not prescribed by your health care provider for at least 24 hours after your discharge time. For Pediatric surgeries, we recommend two adults accompany the child home. Follow any additional instructions given to you from your surgeon. Telephone instructions given to PATIENT __and asked if any additional questions and then verbalized understanding. Patient advised to call surgeon office or pre surgery nurse liaison [phone] if any additional questions.
[2024-10-26] VITALS (9 sets, daily range): BP systolic 120–150; BP diastolic 66–98; PULSE 57–87; RESP 14–20; TEMP 36.6; O2SAT 100
--- NOTE | ~2024-10-26 | XR_ITS ---
EXAMINATION: XR retrograde pyelo w/stent RT DATE: 10/26/2024 11:12 INDICATION: Right internal ureteral stent placement TECHNIQUE: Fluoroscopic images from a right internal ureteral stent placement are submitted for yakov hubbard 99 seconds of fluoroscopy time. 5 fluoroscopic images. FINDINGS: There is a right double-J internal ureteral stent projecting in expected position, with proximal [place] loop at the level of the renal pelvis and distal loop in the pelvis within the bladder lumen. IMPRESSION: 1. Right internal ureteral stent placement. Please refer to real-time procedural findings for donna mishra. Reviewed, dictated and finalized at location A. IMPRESSION: 1. Right internal ureteral stent placement. Please refer to real-time procedu ral findings for details.
--- OUTSIDE RECORDS SUMMARY | 2024-10-26 00:18 | XMS_ITS | Clinical Summary ---
Author Organization [facility] Address [address] [place] [id number] Care Team Providers Care Forming And Assembling Supervisor Name Role Phone Unavailable Primary Care Provider [...] Comments Blood Pressure 132/77 06/02/2022 2:07 PM GRINDER GEAR Pulse 67 06/02/2022 2:07 PM GRINDER GEAR Temperature 37.2 C (99 F) 06/02/2022 2:07 PM GRINDER GEAR Respiratory Rate 18 06/02/2022 2:07 PM GRINDER GEAR Oxygen Saturation 100% 06/02/2022 2:07 PM GRINDER GEAR Inhaled Oxygen Concentration - - Weight 75.3 kg (166 lb) 06/02/2022 2:07 PM GRINDER GEAR Height 180.3 cm (5' 11) 06/02/2022 2:07 PM GRINDER GEAR Body Mass Index 23.15 06/02/2022 2:07 PM GRINDER GEAR Plan of Treatment Health Maintenance Due Date Last Done Comments Cervical Cancer Screening Pa p Smear (Age 30 to 64) Every 3 Years 1988 Hepatitis C 01/07/2006 Hepatitis B Vaccines (1 of 3 - 19+ 3-dose series) 01/07/2007 Pneumococcal Vaccine: Pediatrics (0 to 5 Years) and At-Risk Patients (6 to 49 Years) (1 of 2 - PCV) 01/07/2007 HPV Vaccines (1 - 3-dose SCD M series) 01/07/2015 Annual Physical 06/03/2023 06/02/2022 COVID-19 Vaccine (3 - 2023-2 5 season) 2023 05/23/2020, 04/25/2020 PHQ-2 (Physician [place]) 04/04/2024 Cervical Cancer Screening Pa p with HPV Testing (Age 30 to 64) Every 5 Years 11/28/2025 11/28/2020, 11/28/2020 Cervical Cancer Screening with HPV 11/28/2025 DTaP, Tdap and Td Vaccines ( 1 - Tdap) 04/06/2027 Postponed from 01/07 (Per Provider Recommendation) Meningococcal B Vaccine Aged Out No l [...] Most Recently Relevant to Health Maintenance Insurance [employer] [facility]
--- OUTSIDE RECORDS SUMMARY | 2024-10-26 00:18 | XMS_ITS | Data Portability ---
Author Organization [place] [facility] Address [address] [place] [address] Care Team Providers Care Website Project Manager Name Role Phone ALYSSA TUBBS Primary Care Provider BRYCE LOPEZ Teacher Kindergarten [phone] Assessment No assessment recorded. Plan of Treatment Reminders Order Date Submit Date Provider Last Modified By Organization Details Last Modified Time Details Appointments None recorded. Lab None recorded. Referral physical therapist referral [address] [facility], [address] [place], [address], 10:09:52 Procedures None recorded. Surgeries None recorded. Imaging None recorded. Medication Orders None recorded. Patient TargetsNo targets recorded. Patient Instructions Encounter Date Encounter Id Patient Instructions Last Modified By Organization Details Last Modified Time 12/10/2022 [id number] I discussed with Zunilda that based on [...] Parkinson. daniela Not available 12/10/2022 10:45:35 01/21/2023 [id number] I discussed with Zunilda that the x-rays [...] Parkinson. daniela Not available 01/21/2023 20:53:37 02/04/2023 [id number] I discussed with Mimi that she seems [...] patient has been reviewed and approved by [place], Dr. Alexander Parkinson. [email or web address] Not available 02/04/2023 10:00:47 Reason for Referral Physical Therapist Referral for Closed fracture of calcaneus Referring Physician: Alexander Parkinson, Orthopedic Surgery, Encounter Date: 02/04/2023 Results Created Date Observation Date Name Description Value Unit Range Abnormal Flag Note LastModifiedBy Organization Detail LastModifiedTime 12/24/1912/10/2022 XR, ankle No observ ation record ed. [address] [address] [place], [address], 12/24/2022 12:37:24 01/08/20 23 01/06/2023 MRI, ankle , w/o contr ast No observ ation record [place]. [place] [address] [facility] [address], [place], [address], 01/07/2023 14:13:34 01/22/20 23 01/21/2023 XR, ankle No observ ation record ed. [address] [address] [place], [address], 01/21/2023 10:46:23 Result Notes None recorded. Problems Name Problem SNOMED Code Status Onset Date Resolution Date Notes Provider Name and Address Organization Details Recorded Time Sprain of right ankle 79962907340214 105 Active 2022 RADHA CRENSHAW APRN [address], [place], [address], [place] [facility] 3 10:41:58 Pain of right ankle joint 47950514461046 106 Active 2022 RADHA CRENSHAW APRN [address], [place], [address], [place] [facility] 10:42:07 Closed fracture of calcaneus 64598580 Active 2022 RADHA CRENSHAW [place]N [address] [place], [address], [place] [facility] [...] Last Updated DateTime 180.34 cm 22.6 kg/m2 64654.9 6 g 97.3 [degF] 90 /min 130/83 mm[Hg] Trista Bajwa [place] [facility] 10:06:56 Date Recorded Body height Body mass index (BMI) Body weight Heart rate Systolic And Diastolic Provider Name and Address Organization Details Last Updated DateTime 01/21/2023 180.34 cm 22.6 kg/m2 29657.96 g 72 /min 134/79 mm[Hg] Aurora Drummond [place] - [facility] 01/21/2023 10:13:38 Date Recorded Body height Body mass index (BMI) Body weight Heart rate Systolic And Diastolic Provider Name and Address Organization Details Last Updated DateTime 02/04/2023 180.34 cm 22.6 kg/m2 57489.96 g 70 /min 122/81 mm[Hg] Aurora Drummond [place] [facility] 02/04/2023 09:46:38 Social History Question Answer Notes LastModified by Organizat ion Details LastModified Time Tobacco Smoking Status Never Smoker bernadette trujillo [place] [facility] 12/07/2022 15:23:59 Do You Have An Advance Directive? No Information not available 12/07/2022 Are You Blind Or Do You Have Difficulty Seeing? No [email or web address] Information not available 12/07/2022 Is Blood Transfusion Acceptable In An Emergency? Yes [email or web address] Information not available 12/07/2022 What Is Your Level Of Caffeine Consumption? Occasional [email or web address] Information not available 12/07/2022 In The 14 Days Before Symptom Onset, Have You Had Close Contact With A Laboratory-confir med COVID-19 While That Case Was Ill? No [email or web address] Information not available 12/07/2022 In The 14 Days Before Symptom Onset, Have You Had Close Contact With A Person Who Is Under Investigation For COVID-19 While That Person Was Ill? No [email or web address] Information not available 12/07/2022 Have You Been To An Area Known To Be High Risk For COVID-19? No Information not available 12/07/2022 Are You Deaf Or Do You Have Serious Difficulty Hearing? No Information not available 12/07/2022 What Type Of Diet Are You Following? REGULAR Information not available 12/07/2022 Have You Processed Blood Or Body Fluids From An Ebola Virus Disease Patient Without Appropriate PPE? No Information not available 12/07/2022 Do You Reside In Or Have You Traveled To An Area Where Ebola Virus Transmission Is Active? No Information not available 12/07/2022 What Is The Highest Grade Or Level Of School You Have Completed Or The Highest Degree You Have Received? [id number] Information not available 12/07/2022 Who Is Your Employer? [employer] [email or web address] Information not available 12/07/2022 How Many Days Of Moderate To Strenuous Exercise, Like A Brisk Walk, Did You Do In The Last 7 Days? 5 [email or web address] Information not available 12/07/2022 Are There Any Guns Present In Your Home? No [email or web address] Information not available 12/07/2022 Which Of Your Hands Is Dominant? Right [email or web address] Information not available 12/07/2022 What Is Your Relationship Status? [email or web address] Information not available 12/07/2022 Do You Use Your Seat Belt Or Car Seat Routinely? Yes Information not available 12/07/2022 Are You Sexually Active? No [email or web address] Information not available 12/07/2022 Do You Have Smoke And Carbon Monoxide Detectors In Your Home? Yes [email or web address] Information not available 12/07/2022 What Types Of Sporting Activities Do You Participate In? Weight Lifting Information not available 12/07/2022 Do You Use Sunscreen Routinely? Yes [email or web address] Information not available 12/07/2022 Do You Have Difficulty Walking Or Climbing Stairs? No [email or web address] Information not available 12/07/2022 Sex: Female Functional Status Question Answer Note LastModified by Organizat ion Details LastModified Time Do you use any illicit or recreational drugs? No [email or web address] Information not available 12/07/2022 Do you or have you ever used any other forms of tobacco or nicotine? No [email or web address] Information not available 12/07/2022 What is your level of alcohol consumption? None [email or web address] Information not available 12/07/2022 Are you currently employed? Yes [email or web address] Information not available 12/07/2022 Are you able to walk? YESWOREST [email or web address] Information not available 12/07/2022 Do you have difficulty doing errands alone? No [email or web address] Information not available 12/07/2022 Are you able to care for yourself? 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 No Information not available 12/07/2022 What is your exercise level? Moderate [email or web address] Information not available 12/07/2022 Mental Status Question Answer Note LastModified by Organizat ion Details LastModified Time Do you feel stressed (tense, restless, nervous, or anxious, or unable to sleep at night)? [id number] [email or web address] Information not available 12/07/2022 Do you have difficulty concentrating, remembering or making decisions? No [email or web address] Information no t available 12/07/2022 Family History Relationship Description Onset Age of this Age Resolved Age Notes LastModified by Organization Details LastModified Time Mother Malignant tumor of breast [email or web address] Not available 2022 15:28:47 Father Malignant tumor of testis [email or web address] Not available 2022 15:29:12 Father Disorder of cardiovascul ar system Not available 2022 15:29:59 Medical History Condition Response Coronary Artery Disease N Heart Problems N Gout N Anxiety/Depression N Blood Transfusion N Hernia N Migraines N Thyroid Problems N COPD N Pacemaker N Anemia N Ulcers N Heart Attack ([place]) N Diabetes N Bleeding Disorder N Orthotics [...] Code Diagnosis Note [address] [address] 12/10/2022 09:48:08 12/10/2022 10:19:57 Sprain of right ankle 2371089561 1616401 S93.401A Pain of ri ght ankle joint 2132618445 4030267 M25.571 [address] [address] 01/21/2023 10:02:02 01/21/2023 10:50:49 Closed fracture of calcaneus 94943198 S92.044A [address] [address] 02/04/2023 09:40:55 02/04/2023 09:52:55 Closed fracture of calcaneus 62740646 S92.044D Health Concerns Section Related Observation LastModified by Organization Detai ls LastModified Time None Recorded Concern Status LastModified by Organization Details LastModified Time None Recorded Advance Directives Directive N: Payers Insurance Date Sequence Insurance Name Policy Number Policy Rosen Covered Member ID Rosen Member ID Guarantor Name 02/01/2023 1 [employer] - LIVE 360 (EPO) Zunilda Ye [id number] Zunilda Ye 01/18/2023 MICHAEL ORTIZ [id number] [facility] Zunilda Ye Notes Date Note Type Note Provider Name and Address Organization Details Recorded Time 12/10/2022 text/html AnkleReported bypatient.Location: right; lateral Quality:aching Severity:moderate Timing:date of onset: (12/07/2022) Aggravating Factors:walking; weightbearing Alleviating Factors:rest; limited weight bearing; crutches Associated Symptoms:no numbness; no tingling;swelling;e cchymosis Prior Imaging:x ray Mimi is seen in clinic today with complaints of right ankle pain following a visit to the [place] ED on 12/07/2022 after she rolled her [...] located in the chart. RADHA CRENSHAW APRN [address] [place], [address], [place] [facility] 12/10/2022 [...] will ice and elevate. RADHA CRENSHAW APRN [address], [place], [address], [place] [facility] 01/21/2023 [...] has no other complaints today. RADHA CRENSHAW, WELFARE SUPERVISOR [address] [place], [address], [place] [facility] 02/04/2023 10:04:12 OBGyn Episode No OBEpisode recorded.
[2024-10-26] MEDS: LACTATED RINGERS 1,000 ML 30 ML IV CONT ×2 (10:00→11:20)
[2024-10-26] MEDS: SCOPOLAMINE 1 MG PATCH 1 PATCH TRANSDERM (10:00)
--- NOTE | 2024-10-26 10:09 | WPDANESEPPF ---
Anes - Initial Pre Proc Eval Procedure: Operation Date: 10/26/24 11:00 Proposed Procedures p Cystoscopy Right Ureteroscopy, Right Retrograde Pyelogram, Right Holmium Laser Lithotripsy, Right Stone Extraction, Possible Right Stent Insertion - Hang Wagner MD Date/Time: 10/26/24 10:09 Surgeon: Hang Wagner MD Pre Op Diagnosis: Rt ureteral Stone Patient Data Age: 34 Gender: F Height: 1.8 m Weight: 75 kg Allergies Allergy/AdvReac Type Severity Reaction Status Date / Time No Known Allergies Allergy Verified 10/24/24 08:11 Home Medications ?Medication ?Instructions ?Recorded ?Confirmed ?Type drospirenone (contraceptive) 4 mg 4 mg PO DAILY 10/17/24 10/24/24 History (28) tablet (Slynd) Patient hx anesthesia problems: none Family hx anesthesia problems: none Results Review: All pre-operative results and documents have been reviewed as part of the pre-operative evaluation. [facility] Family History Family History Mother Family history of malignant neoplasm of breast in first degree relative Father Family history of malignant neoplasm of testis Sibling Family history of malignant neoplasm of testis Social History Social History Smoking status: Never smoker Alcohol intake: former Living arrangements: with family Anes - Eval Final PreProcedure Day of Procedure 10/26/24 10:09 Patient weight: normal Heart: regular rate and rhythm Lungs: clear to auscultation Airway: Mallampati scale class II Neurological: alert and oriented Last oral intake: >/= 8 hours ASA classification: I Emergent: no Anesthetic plan: proceed Anesthesia type and monitoring: general LMA and standard monitoring Results Review: All pre-operative results and documents have been reviewed as part of the pre-operative evaluation. Informed Consent: The patient's anesthetic plan and its attendant risks and benefits were discussed with the patient/family/POA. Questions were solicited and answers provided to the satisfaction of the patient/family/POA.
--- NOTE | 2024-10-26 10:13 | WPDHPUPDATE1 ---
History and Physical Update Update Date/Time: 10/26/24 10:13 History and Physical has been reviewed, including an updated exam of the patient. There are NO changes in the patient's condition. Risks, benefits, and alternatives have been discussed and questions answered. Patient agrees to proceed with procedure. Proceed with cystoscopy, right retrograde, right urteroscopy with stone extraction, possible stent exchange.
[2024-10-26] MEDS: ceFAZolin 2 GM in SODIUM CHLORIDE 0.9% IV 50 ML 100 ML IVPB (10:18)
[2024-10-26 10:25] LABS: BEDSIDEPREGUCG Negative (Negative)
[2024-10-26] MEDS: LIDOCAINE 2% GEL UROJET 10 ML PKG MUCOUS MEM (10:37)
--- NOTE | 2024-10-26 11:09 | P.OP_ITS ---
Procedure Note - Detailed Date of Procedure 10/26/24 Pre-op Diagnosis Rt ureteral Stone Post-op Diagnosis Same Procedure Performed Cystoscopy, right retrograde, right ureteroscopy with holmium laser of stone, right stent exchange Surgeon Hang Wagner MD Anesthesia General Description of Procedure patient was taken to the operative suite correctly identified. Once anesthesia was obtained she was placed in dorsal lithotomy position and prepped and draped usual sterile fashion. Twenty-two Portuguese scope was inserted the bladder and the prior stent was grasped. Wire was passed through the stent. Ureteral access sheath was placed in a mini flexible scope was inserted. The stone which was in the proximal UPJ area had flushed into the kidney. It found its way into a extremely tortuous calyx. I was able to finally locate the stone. It was too large to retrieved in 1 piece. At this point we used a 200 micron fiber to dust the stone. there was nothing of adequate size to retrieve at this point. A pyelogram was performed to confirm placement of the stent. 4.8 Portuguese contour stent was then placed with the proximal end coiled in the renal pelvis and the distal in the bladder. Bladder was drained. 2% viscous lidocaine was inserted into the urethra patient is taken recovery stable condition. She will follow-up in a week's time for stent removal. This completes dictation. Please send a copy of op note to my office Estimated Blood Loss 0 Drains Yes Packing No Pathology None sent Complications No immediate complications Condition Stable Disposition PACU
[2024-10-26] MEDS: oxyCODONE HCL (*CRX) 5 MG TAB IR PO (12:42)
== END 2024-10-26 13:30 | disposition home or self-care (01) ==
PROVIDERS: Visit Provider Urology
PROC: (CPT 52352; principal; 2024-10-26 11:00)
DX: N20.1 Calculus of ureter (principal)
CPT/HCPCS: 52356; 74420; J0690; A9270; C1769; C1894; C2617; J2250; J3010; J7120; Q9966

== ENCOUNTER 2024-12-11 11:30 | Outpatient (CLI) | payer OTHER, SELFPAY ==
--- NOTE | ~2024-12-11 | XR_ITS ---
Abdominal radiograph(s) INDICATION: Right ureteral stone COMPARISON: CT abdomen and pelvis 10/17/2024 TECHNIQUE: 2 view supine AP abdomen FINDINGS: Lung bases clear. Scattered colonic gas and stool. Small bowel loops not well seen. No evidence of organomegaly. Right ureteral stone no longer identified. Tiny stone right kidney. Pelvic phleboliths. No acute bony abnormality. IMPRESSION: 1. Right ureteral stone no longer identified. 2. Small stone right kidney persists. Reviewed, dictated and finalized at location R.
--- OUTSIDE RECORDS SUMMARY | 2024-12-11 13:22 | XMS_ITS | Clinical Summary ---
Author Organization [facility] Address [address] [place] [address] Care Team Providers Care Supervisor Drying And Softening Name Role Phone Unavailable Primary Care Provider [...] Comments Blood Pressure 132/77 06/02/2022 2:07 PM FLOOR TILING PROFESSIONAL Pulse 67 06/02/2022 2:07 PM FLOOR TILING PROFESSIONAL Temperature 37.2 C (99 F) 06/02/2022 2:07 PM FLOOR TILING PROFESSIONAL Respiratory Rate 18 06/02/2022 2:07 PM FLOOR TILING PROFESSIONAL Oxygen Saturation 100% 06/02/2022 2:07 PM FLOOR TILING PROFESSIONAL Inhaled Oxygen Concentration - - Weight 75.3 kg (166 lb) 06/02/2022 2:07 PM FLOOR TILING PROFESSIONAL Height 180.3 cm (5' 11) 06/02/2022 2:07 PM FLOOR TILING PROFESSIONAL Body Mass Index 23.15 06/02/2022 2:07 PM FLOOR TILING PROFESSIONAL Plan of Treatment Health Maintenance Due Date [...] M series) 01/07/2015 Annual Physical 06/03/2023 06/02/2022 PHQ-2 (Physician [place]) 04/04/2024 COVID-19 Vaccine (3 - 2024-2 6 season) 2024 05/23/2020, 04/25/2020 Cervical Cancer Screening Pa p with HPV [...] Most Recently Relevant to Health Maintenance Insurance [employer] [facility]
== END 2024-12-11 11:31 | disposition home or self-care (01) ==
LOC: ANHIMG 11:33
PROVIDERS: PCP Internal Medicine; Visit Provider Student in an Organized Health Care Education/Training Program
DX: N20.2 Calculus of kidney with calculus of ureter (principal)
CPT/HCPCS: 74018

== ENCOUNTER 2025-04-03 07:14 | Outpatient (CLI) | payer OTHER, SELFPAY ==
[2025-04-03 07:24] LABS: Hematocrit 40.7 % (37.0-47.0); Hemoglobin 13.6 g/dL (12.0-15.0); Immature Granulocyte Percent A 0.2 % (0-0.5); Lymphocytes Absolute Auto 1.69 K/mm3 (0.9-3.2); Mean Corpuscular HGB Conc 33.4 g/dl (32-36); Mean Corpuscular Hemoglobin 30.8 pg (26-34); Mean Corpuscular Volume 92.1 fl (80-100); Nucleated Red Blood Cells Absolute Auto 0.000 K/mm3 (0.0-0.012); Nucleated Red Blood Cells Perc 0.0 % (0.0-0.2); Platelet Count Result 209 k/mm3 (150-375); Red Blood Count 4.42 M/mm3 (4.2-5.4); White Blood Count 4.2 K/mm3 (4.5-10.0)
[2025-04-03 07:46] LABS: Alanine Aminotransferase 14 U/L (6-35); Albumin Level 4.2 g/dL (3.5-5.1); Alkaline Phosphatase 54 U/L (38-126); Anion Gap 4 mmol/L (4-12); Aspartate Amino Transferase 27 U/L (14-36); Bilirubin,Total 0.7 mg/dL (0.2-1.3); Blood Urea Nitrogen 16 mg/dL (7-17); Calcium 9.3 mg/dL (8.4-10.2); Carbon Dioxide 29 mmol/L (22-30); Chloride 105 mmol/L (98-107); Cholesterol 185 mg/dL (0-200); Estimated Glomerular Filt Rate > 60; Glucose 86 mg/dL (65-110); HDL Direct 72 mg/dL; Potassium 4.3 mmol/L (3.4-5.0); Sodium 138 mmol/L (137-145); Total Protein 7.3 g/dL (6.3-8.2); Triglycerides 63 mg/dL (<150)
== END 2025-04-03 07:15 | disposition home or self-care (01) ==
LOC: ANHLAB 07:14
PROVIDERS: PCP Internal Medicine; Visit Provider Nurse Practitioner
DX: Z13.29 Encounter for screening for other suspected endocrine disorder (principal); Z13.220 Encounter for screening for lipoid disorders
CPT/HCPCS: 36415; 80053; 80061; 85025